=== PATIENT | female | born 1990 | race Caucasian/White ===

== ENCOUNTER 2019-07-19 22:42 | Observation (INO) | payer OTHER, SELFPAY ==
[2019-07-19 22:42] VITALS: BP 122/69; PULSE 109; RESP 16; TEMP 36.9; O2SAT 96; BMI 40.1
--- NOTE | 2019-07-19 23:14 | CT_ITS ---
STUDY: CT ABDOMEN AND PELVIS WITH CONTRAST REASON FOR EXAM: Female, 29 years old. Right lower quadrant pain RADIATION DOSAGE (If Supplied By Facility): CTDIvol = ( 15.41 ) mGy, DLP = ( 1268.82 ) mGycm TECHNIQUE: Transaxial images were obtained from the dome of the diaphragm to the symphysis pubis without oral contrast. IV Isovue 300 100 was administered. Sagittal and coronal images were reconstructed. Individualized dose optimization techniques were used for this CT. COMPARISON: None. FINDINGS: The visualized lung bases are unremarkable. The visualized portions of the heart are within normal limits. Normal liver. Normal gallbladder and extrahepatic biliary system. Normal spleen. Normal pancreas. Normal bilateral adrenal glands. Normal right kidney. Normal left kidney. Normal visualized stomach. Normal small intestine. Normal colon. There is a tubular fluid-filled, appendix (>7mm), suggesting early acute appendicitis. The appendix extends towards the right ovary. Normal abdominal aorta. Normal inferior vena cava. Normal retroperitoneum. Normal urinary bladder. Normal abdominal wall. Normal osseous structures. CT/Abdomen/Pelvis W IV Cont ONLY IMPRESSION: Acute appendicitis. Electronically Signed: Dylon Simon, at 0:33 EDT Tel , Service support ,
--- NOTE | 2019-07-19 23:19 | ED.DCSUM_ITS ---
History of Present Illness Chief Complaint: Abd Pain Informant: Patient Onset: Today Context: Gradual Onset Timing: Continuous Narrative: Patient is a 29-year-old female presenting from home for worsening abdominal pain. Patient states the pain started earlier today and is gradually worsened throughout the day. She states it is in her right upper quadrant as well as her left lower quadrant. She has associated nausea but no vomiting. She states she has had 4 formed bowel movements today. The pain is now sharp, constant and burning. It does not radiate. She states she is never had pain like this before. She states this feels different than her IBS pain. Patient had appointment to see her FLOWER PICKER this morning and everything came back normal. Her pain is been worsening since then. She called her primary care doctor who ordered blood work. The outpatient blood work showed an elevated CRP and elevated cytosis. She was then sent to the emergency room for further evaluation of this. Patient states she is only eaten a small male earlier today and is hungry but does not want to eat because of the pain. Her doctor told her to only drink liquids later in the day. Patient did take ibuprofen which did help her with the pain a little bit but then the pain resumed its intensity after that wore off. Patient denies any surgical history. She denies any associated chest pain, shortness breath or difficulty breathing. She denies any urinary symptoms. She denies any abnormal vaginal bleeding or discharge. She does not think she is . She denies any other complaints at this time. Past Medical History - Allergies and Home Meds Allergies/Adverse Reactions: Allergies No Known Allergies Allergy (Verified 07/20/19 02:45) Past Medical History: - - Depression, irritable bowel syndrome Surgical History: no surgical history Review of Systems All systems negative except as indicated Gastrointestinal: Reports: Abdominal pain, Nausea Physical Exam Vital Signs/Narrative: Vital Signs Temp Pulse Resp BP Pulse Ox 07/19/19 22:42 98.5 F 109 H 16 122/69 H 96 Inital Vital Signs reviewed: Yes General: Well nourished, Well developed, Obese, No Acute Distress Head: Normocephalic, Atraumatic Eyes: Perrl, EOMI ENT: Moist mucous membranes, No rhinorrhea Neck: Supple, Nontender Cardiovascular: Regular rate, Regular rhythm, No murmurs Respiratory: No distress, CTA bilaterally, Chest nontender Abdomen: Soft, Nondistended, Tender - Left lower quadrant and suprapubic region, Hypoactive bowel sounds, - - Tenderness to palpation at McBurney's point. Negative for: Guarding, Rebound tenderness, Dickerson's sign Back: Nontender, Normal Inspection. Negative for: CVA tenderness Extremities: Nontender, No edema Skin: Normal color, No rash Neurological: Alert, Oriented x3, Cranial nerves II-XII grossly intact, Normal Strength, Normal Sensation Psychological: Normal affect, Normal Mood Diagnostic/Tx/Re-eval Clinical Impression(s) from Imaging Studies Abdomen/Pelvis CT 07/19/19 23:14 IMPRESSION: Acute appendicitis. Electronically Signed: Dylon Simon, at 0:33 EDT Tel , Service support , Laboratory Data 07/19/19 07/19/19 07/19/19 23:28 23:28 23:28 Lactic Acid 1.7 Lipase 48 L Urine Color Urine Clarity Urine pH Ur Specific [place] Urine Protein Urine Glucose (UA) Urine Ketones Urine Occult Blood Urine Nitrite Urine Bilirubin Urine Urobilinogen Ur Leukocyte Esterase Urine RBC Urine WBC Ur Squamous Epith Cells Urine Bacteria Urine Mucus Urine Test Negative 07/19/19 23:28 Lactic Acid Lipase Urine Color Yellow Urine Clarity Cloudy Urine pH 6.0 Ur Specific [place] 1.015 Urine Protein 30 H Urine Glucose (UA) Normal Urine Ketones Negative Urine Occult Blood 10 H Urine Nitrite Negative Urine Bilirubin Negative Urine Urobilinogen Normal Ur Leukocyte Esterase 500 H Urine RBC 0-5 SEEN Urine WBC 10-25 SEEN Ur Squamous Epith Cells 5-10 SEEN Urine Bacteria 3+ Urine Mucus 1+ Urine Test Diagnostic Data Abdomen/Pelvis CT 07/19/19 23:14 IMPRESSION: Acute appendicitis. Electronically Signed: Dylon Simon, at 0:33 EDT Tel , Service support , - Medical Decision Making She was evaluated for 1 day of abdominal pain. She points more to her right upper quadrant but is quite tender in her right lower quadrant on exam. She is a negative Dickerson sign and I do not suspect gallbladder as her primary pathology. She had outpatient blood work done earlier today which showed a significant leukocytosis. This was ordered by her PCP, Dr. Damon Hernández. Patient is given IV fluids as well as morphine for pain control. She does have mild i mprovement but does require re-dose of the morphine. CT abdomen and pelvis does show findings concerning for early appendicitis which is consistent with her clinical picture. As patient is tachycardic and has leukocytosis lactate is added on. This is negative. Discussed the case with surgery on-call, Dr. Fraire. He will be down to evaluate the patient. In the meantime patient is started on IV Flagyl and Rocephin empirically. She is kept n.p.o. Patient is transferred to the operating room for definitive management of acute appendicitis. She is stable in the emergency room. ED Disposition - Plan for ED Patient: Disposition: Acute [facility] Diagnosis: Acute appendicitis
[2019-07-19] MEDS: 0.9% Normal Saline 1,000 ML 1000 ML IV (23:27)
[2019-07-19] MEDS: Ondansetron 4 MG/2 ML Vial IV (23:28)
[2019-07-19] MEDS: Morphine 4 MG/ML Syringe IV (23:30)
[2019-07-19 23:34] VITALS: RESP 16
[2019-07-19 23:47] LABS: Color, Urine Yellow (Yellow); Glucose, Dipstick Normal (Normal); Ketone-Dipstick Negative (Negative); Leukocyte Esterase-Dipstick 500 /ul (Negative); Nitrite-Dipstick Negative (Negative); Occult Blood-Urine 10 /ul (Negative); Protein-Dipstick 30 mg/dl (Negative); Specific Gravity, Urine 1.015 (1.002-1.030); Urine Bilirubin Dipstick Negative (Negative); Urine Clarity Cloudy (Clear); Urine Urobilinogen Normal (Normal)
[2019-07-19 23:50] LABS: Internal QC Validated? YES +Cl - CLEAR BKGD; Pregnancy, Urine Negative Negative
[2019-07-19 23:51] LABS: Lipase 48 U/L (73-393)
[2019-07-19 23:53] LABS: Squamous Epithelial Cells - UA 5-10 SEEN /hpf (5-10)
[2019-07-19 23:54] LABS: Red Blood Cells-Urine 0-5 SEEN /hpf (0-5); White Blood Cells 10-25 SEEN /hpf (0-5)
[2019-07-19 23:55] LABS: Bacteria 3+ /hpf (None Seen)
[2019-07-19 23:56] LABS: Mucous, Urine 1+ /hpf (<or=2+)
[2019-07-20] VITALS (11 sets, daily range): BP systolic 95–122; BP diastolic 58–93; PULSE 69–94; RESP 14–20; TEMP 36.4–37.4; O2SAT 94–99; BMI 40.1; BMI 40.2
[2019-07-20 00:04] LABS: Lactic Acid 1.7 mmol/L (0.4-2.0)
[2019-07-20] MEDS: Morphine 4 MG/ML Syringe IV (00:57)
[2019-07-20] MEDS: Ceftriaxone 1 GM/50 ML BAG IV (01:17)
[2019-07-20] MEDS: metroNIDAZOLE 500 MG/100 ML BAG 100 MG IV (01:56)
--- NOTE | 2019-07-20 03:00 | APP_PTH ---
PATIENT: IMANI AN LOC: PCU U#:[id number] AGE/SX: 29/F ROOM: [facility] RE07/20/[address]: Dr. Cory Ferrari MD : 1990 BED: 1 DIS: 07/20/2019 SPEC #: [id number] RECD: 07/20/19 08:18 STATUS: FELIPE REQ #: [id number] SHEELA: 07/20/19 03:[address]: Cory Ferrari DEPT: SURGICAL PATHOLOGY RECD BY: Augie Burrell ENTERED: 07/20/19 08:35 SP TYPE: APPENDIX OTHR DR: Dr. Dmaon Hernández MD Tissues: Appendix, NOS Procedures: Surgery Specimen Level III HEADER OPERATION: Laparoscopic appendectomy PRE-OP DIAGNOSIS: Acute appendicitis TISSUE SUBMITTED: Appendix MICROSCOPIC DIAGNOSIS Appendix, appendectomy: Acute necrotizing appendicitis. Acute serositis. AM:jarett 07/21/19 MICROSCOPIC DESCRIPTION Slides are reviewed. GROSS DESCRIPTION Received is one container labeled with the patient's name and designated appendix. The specimen consists of an appendix measuring 8 cm in length and up to 1.2 cm in diameter. The attached periappendiceal adipose tissue measures up to 2 cm in width. The serosa is covered with ruiz, purulent exudate. No obvious perforation is identified. The lumen contains hemorrhagic material. No fecalith is identified. Planting Material Unloader sections are submitted in one cassette. / SJ:jarett 07/20/19 TC:2 CPT: 16204
--- NOTE | 2019-07-20 03:01 | PCM.HP.STD ---
Problem List (1) Acute appendicitis Status: Acute Qualifiers: Acute appendicitis type: unspecified acute appendicitis type Qualified Code(s): K35.80 - Unspecified acute appendicitis History of Present Illness Date of Admission: 07/20/19 The patient is a 29 year old F who was referred to the emergency room with history of right lower quadrant pain and leukocytosis. The patient states that she was seen by her RECREATION CLERK yesterday morning approximately 11:00 and underwent a routine exam. At that point the patient was just starting is having right lower quadrant pain but that mention it. The pain got more severe she did not go to work. She was seen by Dr. Damon Hernández she states that at 5 PM. Laboratory was drawn. She was notified at 9 PM that she had a leukocytosis. I was notified at [address] scan was abnormal suggesting early acute appendicitis. Past Medical History Medical History: Medical History (Last Updated 07/20/19 @ 03:03 by Cory Ferrari MD) Depression F32.9 Morbid obesity due to excess calories E66.01 Allergies No Known Allergies Allergy (Verified 07/20/19 02:45) Home Medications: Ambulatory Orders Medication Instructions Recorded Cholecalciferol (Vitamin D3) 2,000 unit PO DAILY 07/19/19 [Vitamin D3] Cetirizine HCl [Zyrtec] 10 mg PO DAILY 07/20/19 Surgical History: no surgical history Smoking Status: Never smoker Alcohol: None Review of Systems Constitutional: Reports: - - Last food approximately 4 PM last drink at about 7 PM Cardiovascular: Denies: Chest Pain Gastrointestinal: Reports: Abdominal Pain - L-shaped pattern right mid abdomen extending down to the right lower quadrant across the midline Genitourinary: Denies: Dysuria Skin: Reports: - - History of a recent rash VTE Information - Inpt Only VTE Present on Admission: No Patient Problems: Active and Suspected Problems (Last Updated 07/20/19 @ 03:03 by Cory Ferrari MD) Acute appendicitis (Acute) - Physical Exam General: Alert, Oriented x3, Cooperative, No apparent distress Oral: Moist Mucosa Lungs: Clear to auscultation, Normal air movement Cardiovascular: Regular rate, Regular Rhythm Abdomen: Soft, Hypoactive Bowel Sounds, - - Tender to palpation right mid abdomen and right lower quadrant and suprapubic and mild tenderness left lower quadrant Extremities: No Calf Tenderness Psych/Mental Status: Normal Affect Vital Signs Temp Pulse Resp BP Pulse Ox 98.6 F 84 14 98/69 99 07/20/19 02:25 07/20/19 02:25 07/20/19 02:25 07/20/19 02:25 07/20/19 02:25 Oxygen Delivery Method Room Air Weight: 249 lb 1.957 oz Body Mass Index (BMI) 40.1 Intake and Output for Last 24 Hours 07/18/19 07/19/19 07/20/19 23:59 23:59 23:59 Intake Total 1050 / 1050 Balance 1050 / 1050 Laboratory Tests Past 24 Hrs 07/19/19 07/19/19 07/19/19 23:28 23:28 23:28 Lactic Acid 1.7 Lipase 48 L Urine Color Urine Clarity Urine pH Ur Specific [place] Urine Protein Urine Glucose (UA) Urine Ketones Urine Occult Blood Urine Nitrite Urine Bilirubin Urine Urobilinogen Ur Leukocyte Esterase Urine RBC Urine WBC Ur Squamous Epith Cells Urine Bacteria Urine Mucus Urine Test Negative 07/19/19 23:28 Lactic Acid Lipase Urine Color Yellow Urine Clarity Cloudy Urine pH 6.0 Ur Specific [place] 1.015 Urine Protein 30 H Urine Glucose (UA) Normal Urine Ketones Negative Urine Occult Blood 10 H Urine Nitrite Negative Urine Bilirubin Negative Urine Urobilinogen Normal Ur Leukocyte Esterase 500 H Urine RBC 0-5 SEEN Urine WBC 10-25 SEEN Ur Squamous Epith Cells 5-10 SEEN Urine Bacteria 3+ Urine Mucus 1+ Urine Test Assessment/Plan All Active Problems (Last Updated 07/20/19 @ 03:03 by Cory Ferrari MD) Acute appendicitis (Acute) White blood cell count is significantly elevated 18.9. Urinalysis is abnormal with positive leukocyte esterase and white blood cells. I do not believe that cultures were sent from the emergency room but antibiotics were initiated in the emergency room. CT findings suggest early acute appendicitis. This patient actually may have more than 1 etiology to her pain. Her clinical findings are consistent with acute appendicitis and I am recommending a laparoscopic appendectomy with possible conversion to an open technique. She is aware of the technique, benefits, risks, alternatives. I recommend urine for culture and sensitivity. Cory Ferrari M.D., F.A.C.S.
--- NOTE | 2019-07-20 03:09 | DCINST_ITS ---
Discharge Diet: Light diet - advance as tolerated - if you have questions about your diet instructions, please talk to you doctor. Discharge Activity: May Not Drive - for 3-5 days or while taking narcotic pain medicine. May shower in (days): 1 Lifting Restrictions: 10 pounds Call your doctor if your incision/area has: Continuous Slow Oozing, Sudden Increased Bleeding, Increased Pain/ Swelling, Increased Redness, Foul Smelling Discharge Call your doctor if you observe: Fever of 101 or Higher Suture Line Care: Avoid Pulling/Pushing, Avoid Pinching/Bending Additional Dressing/Incision Instructions:: Change or remove dressing in 4 days. Leave steri-strips in place for 1 week. Allergies/Adverse Reactions: Allergies No Known Allergies Allergy (Verified 07/20/19 02:45) Medications to take at Discharge Cholecalciferol (Vitamin D3) [Vitamin D3] 2,000 unit PO DAILY 07/19/19 Cetirizine HCl [Zyrtec] 10 mg PO DAILY 07/20/19 Primary Care Physician: Damon Hernández MD [Primary Care Provider] - Test Results: Test results from this visit will be discussed in further detail at your follow- up appointment, if applicable. Please Follow Up With: Cory Ferrari MD - [phone] When: Call to make an appointment to be seen in about 10 days.
[2019-07-20] MEDS: Bupivacaine Mpf 0.5% 30 ML VIAL (03:58)
--- NOTE | 2019-07-20 04:08 | OP.PCM_ITS ---
Problem List (1) Acute appendicitis Status: Acute Qualifiers: Acute appendicitis type: unspecified acute appendicitis type Qualified Code(s): K35.80 - Unspecified acute appendicitis Report of Operation Date of Procedure: 07/20/19 Pre-Operative Diagnosis: Acute appendicitis Post-Operative Diagnosis: Same Surgery/Procedure Performed:: Laparoscopic appendectomy Description of Surgical Findings:: Timeout and informed consent was obtained. 29-year-old female taken the operating placement table underwent general endotracheal intubation anesthesia. She received Rocephin and metronidazole in the emergency room. The abdomen was sterilely prepped and draped. 0.5% Marcaine was used as local anesthetic. Throughout the procedure total 30 cc was used. Skin sites were pre- anesthetized. It is noted that the patient is morbidly obese with a very large abdominal pannus. Dissection was performed down through the infraumbilical m idline incision holding sutures of 0 Vicryl placed the fascia was nicked with a scalpel a varies needle inserted saline drop test performed the abdomen was insufflated with CO2 to a pressure of 12 mmHg pressure Lucy trocar inserted 10 lap scope inserted no evidence of any trocar injuries in the infraumbilical area to 5 [place] sites were selected and placed. The abdomen was inspected. There appeared to be inflammation of the mid and tip of the appendix. A window was made in the mesoappendix flush with the cecum. A standard height 45 mm stapler was used to secure and transect. Then a vascular right stapler was used to transect the mesoappendix. Additional hemo-lock clips were placed in the mesoappendix to assure hemostasis. 4 x 4 was used to dab up some of the external small amount of bleeding. Hemostasis was intact. The appendix was placed in a retrieval bag and exited the umbilicus. Hemostasis was intact the abdomen was allowed to deflate of the CO2 as the trochars were removed. The fascia at the umbilicus approximate interrupted [id number] suture of 0 Vicryl. Skin edges approximate interrupted 4 Monocryl subdermal stitches. Steri-Strips Telfa and OpSite dressings applied. Sponge and instrument and needle counts were reported to surgically correct. Blood loss minimal. Specimens appendix. Drains none. Blood loss minimal. The patient was taken to the recovery area in septic condition without apparent complication. Cory Ferrari M.D., F.A.C.SAlexander Type of Anesthesia:: General Anesthesiologist: Tommy Lockhart
[2019-07-20] MEDS: Lactated Ringers 1,000 ML 70 ML IV ×2 (04:47→05:13)
[2019-07-20] MEDS: Ondansetron 4 MG/2 ML Vial IV (05:49)
[2019-07-20] MEDS: Morphine 2 MG/ML Syringe IV (05:49)
[2019-07-20] MEDS: HYDROcodone Bitartrate/Apap 5/325 Tablet PO ×2 (07:09→13:13)
[2019-07-20] MEDS: Loratadine 10 MG Tablet PO (10:11)
--- NOTE | 2019-07-20 15:29 | PCM.PN.SRG ---
Patient Problems: Active and Suspected Problems (Last Updated 07/20/19 @ 03:03 by Cory Ferrari MD) Acute appendicitis (Acute) Subjective: Mild discomfort but admission pain is gone - Physical Exam Abdomen: Soft, Hypoactive Bowel Sounds Vital Signs Temp Pulse Resp BP Pulse Ox 97.8 F 90 16 105/64 98 07/20/19 13:10 07/20/19 13:10 07/20/19 13:10 07/20/19 13:10 07/20/19 13:10 Oxygen Delivery Method Room Air Weight: 249 lb Body Mass Index (BMI) 40.1 Intake and Output for Last 24 Hours 07/18/19 07/19/19 07/20/19 23:59 23:59 23:59 Intake Total 2430.33 / 2430.33 Output Total 450 / 450 Balance 1979.33 / 1979.33 Laboratory Tests Past 24 Hrs 07/19/19 07/19/19 07/19/19 23:28 23:28 23:28 Lactic Acid 1.7 Lipase 48 L Urine Color Urine Clarity Urine pH Ur Specific [place] Urine Protein Urine Glucose (UA) Urine Ketones Urine Occult Blood Urine Nitrite Urine Bilirubin Urine Urobilinogen Ur Leukocyte Esterase Urine RBC Urine WBC Ur Squamous Epith Cells Urine Bacteria Urine Mucus Urine Test Negative 07/19/19 23:28 Lactic Acid Lipase Urine Color Yellow Urine Clarity Cloudy Urine pH 6.0 Ur Specific [place] 1.015 Urine Protein 30 H Urine Glucose (UA) Normal Urine Ketones Negative Urine Occult Blood 10 H Urine Nitrite Negative Urine Bilirubin Negative Urine Urobilinogen Normal Ur Leukocyte Esterase 500 H Urine RBC 0-5 SEEN Urine WBC 10-25 SEEN Ur Squamous Epith Cells 5-10 SEEN Urine Bacteria 3+ Urine Mucus 1+ Urine Test Medical Necessity - Tobacco Use Smoking Status: Never smoker Tobacco Use: Non-smoker Assessment/Plan All Active Problems (Last Updated 07/20/19 @ 03:03 by Cory Ferrari MD) Acute appendicitis (Acute) Ready for discharge Pt had CRISIS INTERVENTION COUNSELOR physical exam yesterday morning likely cause of UA contaminant
== END 2019-07-20 15:30 | disposition home or self-care (01) ==
LOC: ED 22:54 → SDC 07-20 02:08 → PCU 07-20 02:09 → SDC 07-20 04:11
PROVIDERS: Admitting Provider Surgery; Emergency Provider Emergency Medicine; Family Provider Family Medicine; PCP Family Medicine; Visit Provider Surgery
PROC: 0DTJ4ZZ Resection of Appendix, Percutaneous Endoscopic Approach (ICD-10-PCS; CPT 44970; principal; 2019-07-20 03:00)
DX: K35.80 Unspecified acute appendicitis (principal); K58.9 Irritable bowel syndrome, unspecified; E66.01 Morbid (severe) obesity due to excess calories; Z68.41 Body mass index [BMI] 40.0-44.9, adult; Z71.3 Dietary counseling and surveillance
CPT/HCPCS: 00840; 44970; 74177; 81001; 81025; 83605; 83690; 87086; 87088; 88304; 96365; 96375; 96376; 99218; 99282; J7030; J7050; J7120; Q9967; A4216; G0378; J2405

== ENCOUNTER → 2019-07-19 | Outpatient (CLI) | payer OTHER, SELFPAY ==
[2019-07-19 18:17] LABS: Absolute Lymphocyte Count 1.64 X10^3/uL (0.83-4.51); Absolute Neutrophil Count 16.4 X10^3/uL (2.0-7.7); Basophil# 0.04 X10^3/uL; Basophil% 0.2 % (0-1); Eosinophil# 0.03 X10^3/uL; Eosinophils% 0.2 % (0-5); Lymphocyte # 1.64 X10^3/ul (4.0); Lymphocyte % 8.7 % (19-41); Mean Corp Hgb Conc 31.7 g/dL (32-36); Mean Corpuscular Hgb 28.2 pg (27.0-32.0); Mean Corpuscular Volume 88.9 fL (81-99); Mean Platelet Vol. 11.8 fl (6.2-12.0); Monocyte# 0.68 X10^3/uL; Monocyte% 3.6 % (0-10); NRBC Flagged by Analyzer 0 % (0-5); Neutrophil # 16.43 X10^3/uL (2.7-7.7); Platelet Count 256 K/mm3 (150-450); RBC Distribution Width CV 13.1 % (11.6-14.6); RBC Distribution Width SD 42.7 fl (35.1-43.9); Red Blood Count 4.61 M/mm3 (4.2-5.4); White Blood Count 18.9 K/mm3 (4.4-11.0)
[2019-07-19 18:31] LABS: AST(SGOT) 13 U/L (15-37); Alanine Aminotransfer ALT/SGPT 33 U/L (13-56); Alkaline Phosphatase 90 U/L (45-117); Anion Gap 3 (5-15); BUN 9 mg/dL (7-18); BUN/Creat Ratio 9.5 RATIO (10-20); Calcium,Total 9.3 mg/dL (8.5-10.1); Chloride 105 mmol/L (98-107); Creatinine, Serum 0.94 mg/dL (0.55-1.02); EST Glomerular Filtration Rate 74 mL/min (>60); Est Glom Filt Rate - Afr Amer 89 mL/min (>60); Glucose 126 mg/dL (74-106); Potassium 3.4 mmol/L (3.5-5.1); Sodium Level 136 mmol/L (136-145)
[2019-07-21 16:07] LABS: Endomysial Antibody IgA Negative (Negative)
[2019-07-23 20:07] LABS: Beef <0.10 kU/L (Class 0); Corn <0.10 kU/L (Class 0); Egg, Whole <0.10 kU/L (Class 0); Milk (Cow) <0.10 kU/L (Class 0); Peanut <0.10 kU/L (Class 0); Pork <0.10 kU/L (Class 0); Soybean <0.10 kU/L (Class 0); Wheat <0.10 kU/L (Class 0)
[2019-07-24 13:47] LABS: Chocolate <0.10 kU/L (Class 0)
[2019-07-24 13:51] LABS: Immunoglobulin A 301 mg/dL (87-352); t-Transglutaminase IgA <2 U/mL (0-3)
== END | disposition home or self-care (01) ==
LOC: LAB 17:51
PROVIDERS: Family Provider Internal Medicine; PCP Internal Medicine; Referring Provider Family Medicine; Visit Provider Family Medicine
DX: R19.7 Diarrhea, unspecified (principal); R10.31 Right lower quadrant pain
CPT/HCPCS: 36415; 80053; 82784; 83516; 85025; 86003; 86005; 86140; 86255

== ENCOUNTER → 2019-07-25 | Outpatient (CLI) | payer OTHER, SELFPAY ==
[2019-07-20 05:20] VITALS: BMI 40.1
[2019-07-25 11:43] LABS: Color, Urine Yellow (Yellow); Glucose, Dipstick Normal (Normal); Ketone-Dipstick Negative (Negative); Leukocyte Esterase-Dipstick 100 /ul (Negative); Nitrite-Dipstick Negative (Negative); Occult Blood-Urine 10 /ul (Negative); Protein-Dipstick Negative (Negative); Specific Gravity, Urine 1.015 (1.002-1.030); Urine Bilirubin Dipstick Negative (Negative); Urine Clarity Sl. Cloudy (Clear); Urine Urobilinogen Normal (Normal)
[2019-07-25 11:51] LABS: Red Blood Cells-Urine 0-5 SEEN /hpf (0-5); Squamous Epithelial Cells - UA 5-10 SEEN /hpf (5-10); White Blood Cells 0-5 SEEN /hpf (0-5)
[2019-07-25 11:52] LABS: Bacteria 2+ /hpf (None Seen); Mucous, Urine 1+ /hpf (<or=2+)
== END | disposition home or self-care (01) ==
PROVIDERS: Family Provider Family Medicine; PCP Family Medicine; Referring Provider Surgery; Visit Provider Surgery
DX: R30.0 Dysuria (principal)
CPT/HCPCS: 81001

== ENCOUNTER → 2021-06-13 07:37 | Outpatient (REF) | payer OTHER, SELFPAY ==
[2021-01-16 14:48] VITALS: BMI 40.1
[2021-06-13 08:52] LABS: Cholesterol 216 mg/dL (200); Glucose 105 mg/dL (74-106); High Density Lipoprotein 40 mg/dL; Triglycerides 167 mg/dL; Very Low Density Lipoprotein 33 mg/dL (5-40)
== END ==
LOC: HW 07:37
PROVIDERS: PCP Family Medicine
DX: Z00.00 Encounter for general adult medical examination without abnormal findings (principal)
CPT/HCPCS: 80061; 82947

== ENCOUNTER → 2021-06-25 | Outpatient (CLI) | payer OTHER, SELFPAY | END | disposition home or self-care (01) | LOC: LABSPEC 16:12 | PROVIDERS: PCP Family Medicine; Visit Provider Physician Assistant | DX: Z11.52 Encounter for screening for COVID-19 (principal) | CPT/HCPCS: 87635; U0005; U0003 ==

== ENCOUNTER → 2021-07-24 16:55 | Outpatient (CLI) | payer OTHER, MEDICAID, SELFPAY ==
[2021-07-24 17:14] LABS: Hematocrit 42.5 % (37-47); Hemoglobin 13.4 g/dL (12.0-15.0); Mean Corp Hgb Conc 31.5 g/dL (32-36); Mean Corpuscular Volume 88.9 fL (81-99); Mean Platelet Vol. 11.3 fl (6.2-12.0); Platelet Count 286 K/mm3 (150-450); RBC Distribution Width CV 13.2 % (11.6-14.6); RBC Distribution Width SD 43.2 fl (35.1-43.9); Red Blood Count 4.78 M/mm3 (4.2-5.4); White Blood Count 11.3 K/mm3 (4.4-11.0)
[2021-07-24 18:00] LABS: Vitamin B12 324 pg/mL (211-911)
[2021-07-24 18:19] LABS: ALB/GLOB Ratio 0.9 RATIO (0.9-2.4); AST(SGOT) 10 U/L (15-37); Alanine Aminotransfer ALT/SGPT 25 U/L (13-56); Albumin, Serum 3.8 g/dL (3.2-5.0); Alkaline Phosphatase 106 U/L (45-117); Anion Gap 4 (5-15); BUN 12 mg/dL (7-18); BUN/Creat Ratio 14.5 RATIO (10-20); Calcium,Total 9.1 mg/dL (8.5-10.1); Chloride 104 mmol/L (98-107); Creatinine, Serum 0.83 mg/dL (0.55-1.02); EST Glomerular Filtration Rate 85 mL/min (>60); Est Glom Filt Rate - Afr Amer 103 mL/min (>60); Globulin 4.3 g/dL (2.2-4.2); Glucose 98 mg/dL (74-106); Protein, Total 8.1 g/dL (6.4-8.2); Sodium Level 140 mmol/L (136-145)
[2021-07-29 19:54] LABS: Vitamin B1, Thiamine 148.2 nmol/L (66.5-200.0)
== END ==
PROVIDERS: PCP Family Medicine; Visit Provider Psychiatry & Neurology Neurology
DX: F32.9 Major depressive disorder, single episode, unspecified (principal); F41.1 Generalized anxiety disorder; F43.10 Post-traumatic stress disorder, unspecified; F81.9 Developmental disorder of scholastic skills, unspecified
CPT/HCPCS: 36415; 80053; 82607; 82746; 84425; 84443; 85027

== ENCOUNTER → 2021-07-25 15:32 | Outpatient (CLI) | payer OTHER, MEDICAID, SELFPAY ==
--- NOTE | 2021-07-25 16:00 | MRI_ITS ---
STUDY: MRI BRAIN WITH AND WITHOUT CONTRAST REASON FOR EXAM: Female, 31 years old. Memory Loss, ADHD TECHNIQUE: Standardized multiplanar fat and water weighted pulse sequences were obtained. IV Yes YES was administered for the contrast portion of the examination. COMPARISON: None. FINDINGS: Normal size of the ventricles and extra-axial spaces for the patient''s age. Normal white matter tracts of the supratentorial brain. Normal bilateral basal ganglia. Normal thalami. There is no extra-axial fluid accumulation. Normal flow voids within the major intracranial circulation suggesting patency by spin echo criteria. Normal venous enhancement. There is no enhancing intra-axial or extra-axial abnormality. Normal sella turcica, pituitary gland, infundibular stalk, optic chiasm and hypothalamus. Normal tectal plate and pineal gland. Normal midbrain, heladio and medulla. Normal cerebellum. Normal basal cisterns. Normal bilateral temporal bones. Normal bilateral internal auditory canals. No demonstrated orbital abnormality, within the constraints of a routine brain study. Normal visualized paranasal sinuses. Normal calvarium and skull base. Normal visualized soft tissue structures. Normal visualized upper cervical spine. MRI/Brain W/WO Contrast IMPRESSION: Normal unenhanced and enhanced MRI of the brain. Electronically Signed: Matias Jimenez MD at 19:26 EDT , Service support ,
== END ==
PROVIDERS: PCP Family Medicine; Referring Provider Psychiatry & Neurology Neurology; Visit Provider Psychiatry & Neurology Neurology
DX: F90.9 Attention-deficit hyperactivity disorder, unspecified type (principal); F81.9 Developmental disorder of scholastic skills, unspecified
CPT/HCPCS: 70553; A9575

== ENCOUNTER → 2022-11-04 | Outpatient (CLI) | payer OTHER, MEDICAID, SELFPAY ==
[2022-11-07 12:29] LABS: HPV APTIMA, High Risk Negative (Negative)
== END | disposition home or self-care (01) ==
LOC: LABSPEC 12:47
PROVIDERS: PCP Family Medicine; Visit Provider Registered Nurse
DX: Z12.4 Encounter for screening for malignant neoplasm of cervix (principal)
CPT/HCPCS: 87624; 88175; G0145